=== PATIENT | male | born 1970 | race Caucasian/White ===

== ENCOUNTER → 2020-05-07 09:36 | Outpatient (CLI) | payer OTHER, SELFPAY ==
--- NOTE | 2020-05-07 09:39 | DI.RAD.S_ITS ---
PROCEDURE: XR SHOULDER LT MIN 2V INDICATIONS: left shoulder pain no trauma TECHNIQUE: 3 views of the shoulder were acquired. COMPARISON: None. FINDINGS: Bones: No fractures or dislocations. Mild osteoarthritic changes in acromioclavicular joint are seen. No suspicious bony lesions. Visualized ribs appear intact. Soft tissues: No suspicious soft tissue calcifications. IMPRESSION: No shoulder fracture or dislocation. Mild acromioclavicular joint osteoarthritis. Dictated by: Óscar Sawyer M.D. on 05/07/2020 at 10:06 Approved by: Óscar Sawyer M.D. on 05/07/2020 at 10:17
== END ==
PROVIDERS: PCP Specialist; Referring Provider Physical Medicine & Rehabilitation; Visit Provider Physical Medicine & Rehabilitation
DX: M75.42 Impingement syndrome of left shoulder (principal); M25.512 Pain in left shoulder; M19.012 Primary osteoarthritis, left shoulder
CPT/HCPCS: 73030

== ENCOUNTER → 2020-06-27 14:12 | Outpatient (CLI) | payer OTHER, SELFPAY ==
--- NOTE | 2020-06-27 14:14 | DI.RAD.S_ITS ---
PROCEDURE: XR CERVICAL SPINE 4V OR 5V INDICATIONS: cervical radiculopathy TECHNIQUE: 5 views of the cervical spine acquired. COMPARISON: None. FINDINGS: Bones: No fractures or dislocations to the C7-T1 level. Straightening of normal cervical lordosis is seen. Decreased intervertebral disc space and degenerative endplate changes are noted at C5-6 and C6-7 levels. Oblique images demonstrate bilateral bony foraminal stenosis at C5-6 level. Soft tissues: No prevertebral soft tissue swelling. IMPRESSION: Degenerative disc disease at C5-6 and C6-7 levels with suggestion of bilateral bony foraminal stenosis at C5-6 level. No fracture or dislocation. Dictated by: Óscar Sawyer M.D. on 06/27/2020 at 13:36 Approved by: Óscar Sawyer M.D. on 06/27/2020 at 13:37
== END ==
PROVIDERS: PCP Specialist; Referring Provider Physical Medicine & Rehabilitation; Visit Provider Physical Medicine & Rehabilitation
DX: M47.22 Other spondylosis with radiculopathy, cervical region (principal)
CPT/HCPCS: 72050

== ENCOUNTER → 2020-07-04 12:06 | Outpatient (CLI) | payer OTHER, SELFPAY ==
--- NOTE | 2020-07-04 12:07 | DI.MRI.S_ITS ---
PROCEDURE: MR SHOULDER LT WO CON INDICATIONS: Left suprascapular mass TECHNIQUE: Noncontrast oblique coronal T2 fast spin echo with fat saturation, oblique sagittal T1 spin echo and T2 fast spin echo with fat saturation, axial T1 spin echo and T2 fast spin echo with fat saturation through the shoulder. COMPARISON: [facility], CR, XR SHOULDER LT MIN 2V, 05/07/2020, 9:38. FINDINGS: Image quality: There is mild inhomogeneous fat saturation. Rotator cuff: The supraspinatus, infraspinatus, subscapularis, and teres minor appear intact. Sagittal images demonstrate no fatty muscle atrophy. Bones and bursae: No bone marrow contusions or fractures. There is moderate acromioclavicular joint degeneration with capsular hypertrophy, small joint effusion, and periarticular bone marrow edema in the distal clavicle and acromion. The acromion demonstrates conventional anatomy, without an os acromiale. Trace subacromial-subdeltoid bursal fluid is present. Capsule and soft tissues: There is intermediate signal within the posterosuperior labrum. In the absence of intra-articular contrast, the glenohumeral ligaments appear intact. The long head of the biceps tendon demonstrates normal location and morphology. The rotator interval appears normal, without fibrosis. The coracohumeral ligament is normal in thickness. No discrete soft tissue mass identified within the visualized musculature or chest wall. IMPRESSION: 1. No discrete soft tissue mass identified within the visualized musculature chest wall. Further history was obtained following the study. Patient's reported palpable abnormality was localized inferomedial to the scanned area of the shoulder and not included on the current study. If clinical concern persists, further evaluation may be obtained with a dedicated chest wall study with intravenous contrast. 2. Moderate acromioclavicular joint degeneration with periarticular bone marrow edema. 3. Degenerative signal within the posterosuperior labrum. Dictated by: Rubio Ramos M.D. on 07/04/2020 at 14:25 Approved by: Rubio Ramos M.D. on 07/04/2020 at 14:35
--- NOTE | 2020-07-04 12:07 | DI.MRI.S_ITS ---
PROCEDURE: MR CERVICAL SPINE WO CON INDICATIONS: Left upper extremity paresthesias TECHNIQUE: Noncontrast sagittal T1 spin echo and T2 fast spin echo, sagittal STIR, foraminal oblique sagittal T2 fast spin echo, and axial gradient echo or T2 fast spin echo through the cervical spine. COMPARISON: [facility], CR, XR CERVICAL SPINE 4V OR 5V, 06/27/2020, 14:21. FINDINGS: Image quality: Excellent. Alignment and Curvature: There is normal bony alignment. Bone Marrow: Reactive endplate changes noted adjacent to the C5-C6 and C6-C7 discs. Spinal Cord: Visualized spinal cord has normal size and signal. No cerebellar tonsillar herniation. Paraspinous Soft Tissues: No paravertebral masses. Prevertebral soft tissues are normal in thickness. C2-C3: Loss of disc signal. No central stenosis. No neural foraminal narrowing. No neural compression. C3-C4: Loss of disc signal. Minimal, diffuse disc bulge. No central stenosis. No neural foraminal narrowing. No neural compression. C4-C5: Loss of disc signal. No central stenosis. No neural foraminal narrowing. No neural compression. C5-C6: Loss of disc signal and height. Anterior endplate osteophytosis. Moderate, diffuse disc bulge. Severe narrowing of the central canal with slight compression of the cervical spinal cord. Moderate bilateral uncovertebral joint hypertrophy. Severe bilateral neural foraminal narrowing with compression of the exiting C6 nerve roots. C6-C7: Loss of disc signal and height. Moderate, diffuse disc bulge. Severe narrowing of the central canal with compression of the nerve roots of the cauda equina. Moderate bilateral uncovertebral joint hypertrophy. Severe bilateral neural foraminal narrowing with compression of the exiting C7 nerve roots. C7-T1: Loss of disc signal. Minimal, diffuse disc bulge. No central stenosis. No neural foraminal narrowing. No neural compression. IMPRESSION: 1. Multilevel degenerative disc disease. 2. Multilevel uncovertebral hypertrophy. 3. Severe C5-C6 and C6-C7 central canal narrowing with compression of cervical spinal cord. 4. Severe bilateral C5-C6 and C6-C7 neural foraminal narrowing with compression of the exiting bilateral C6 and C7 nerve roots. Dictated by: Mariela Schrader MD, PhD on 07/04/2020 at 13:38 Approved by: Mariela Schrader MD, PhD on 07/04/2020 at 13:56
== END ==
PROVIDERS: PCP Specialist; Referring Provider Physical Medicine & Rehabilitation; Visit Provider Physical Medicine & Rehabilitation
DX: M50.122 Cervical disc disorder at C5-C6 level with radiculopathy (principal); M48.02 Spinal stenosis, cervical region; R22.32 Localized swelling, mass and lump, left upper limb; M19.012 Primary osteoarthritis, left shoulder; R20.2 Paresthesia of skin
CPT/HCPCS: 72141; 73221

== ENCOUNTER 2020-08-14 09:41 | Outpatient (CLI) | payer OTHER, SELFPAY ==
[2020-08-14] VITALS (9 sets, daily range): BP systolic 137–160; BP diastolic 72–94; PULSE 15–83; RESP 13–18; TEMP 37.2; O2SAT 92–99
--- NOTE | 2020-08-14 09:44 | DI.RAD.S_ITS ---
PROCEDURE: PAIN C/T INTERLAMINAR INJECT INDICATIONS: SPINAL STENOSIS COMPARISON: [facility], CR, XR CERVICAL SPINE 4V OR 5V, 06/27/2020, 14:21. FINDINGS: Fluoroscopic spot filming was performed to verify placement of a spinal needle at the C6-C7 level, as labeled on the films. Appropriate location of the needle tip was confirmed by injection of iodinated contrast. IMPRESSION: No significant intraprocedural abnormality. Dictated by: Juan Jose Scott M.D. on 08/14/2020 at 9:52 Approved by: Juan Jose Scott M.D. on 08/14/2020 at 9:52
[2020-08-14] MEDS: fentaNYL 100 MCG/2 ML INJ 50 MCG IV (10:08)
[2020-08-14] MEDS: BUPIVACAINE 0.25% (PF) VIAL 2 ML INJ (10:12)
[2020-08-14] MEDS: MIDAZOLAM 5 MG/5 ML VIAL IV (10:12)
[2020-08-14] MEDS: IOPAMIDOL 15 ML VIAL 3 ML INJ (10:13)
[2020-08-14] MEDS: DEXAMETHASONE 10 MG/ML VIAL 30 MG INJ (10:13)
--- NOTE | 2020-08-14 10:22 | P.PCN_ITS ---
Date/Time/Diagnoses Date of procedure: 08/14/20 Time of procedure: 10:22 Pre-procedure diagnosis: 1. CERVICAL STENOSIS, 2. CERVICAL HNP WITH UPPER EXTREMITY RADICULAR FEATURES Post-procedure diagnosis: same Procedure Notes Procedure: 1. FLUORSCOPICALLY GUIDED CONTRAST CONTROLLED INTERLAMINAR EPIDURAL STEROID INJECTION - C6/7 TL SHAMEKA Indications: Vladimir is referred by Dr. Ernst for treatment of Cervical HNP with Upper Extremity Paresthesias. Physician: Javy Aguilar Total Fluoroscopy time (seconds): 24 Total sedation minutes: 12 Complications: none Procedure in detail & Post-procedure care: FINDINGS Cervical Stenosis due to disc deterioration and nerve root irritation and nerve root irritation DESCRIPTION OF PROCEDURE Fluoroscopically guided, contrast-controlled C6/7 translaminar epidural steroid injection with conscious sedation. Following review of allergy and review of potential side effects and complications, including, but not necessarily limited to, infection, allergic reaction, local tissue breakdown, temporary as well as permanent nerve injury, stroke, paralysis, and possible , the patient indicated that patient understood and agreed to proceed. An informed consent document was signed by the patient, witnessed by a nurse, and placed in the patient's chart. Additionally, other treatment options including modalities, medications, and physical therapy were reviewed with the patient. After review of previous anaesthesic history and IV conscious sedation the patient was deemed safe to proceed with today?s procedure with IV conscious sedation as ASA class II designation. Safety time-out was performed to confirm patient ID, procedure to be performed and site of procedure. IV sedation was accomplished with a combination of 4mg of Versed and 50mcg of Fentanyl administered by the RN after DO order, titrated to patient comfort during the course of the procedure while the patient remained responsive to all verbal commands. In the prone position, following sterile prep and drape of the cervical region, the C6/7 translaminar space was identified fluoroscopically. The skin was anesthetized via a 25-gauge 1.5-inch needle with 1% lidocaine solution. At this point, a 25-gauge, 2.5-inch short bevel spinal needle was atraumatically introduced and advanced under fluoroscopic guidance into epidural space at the C6/7 translaminar space. Depth was confirmed on lateral view. Radiological data, including multiple fluoroscopic views of the cervical spine, reveal a spinal needle at the C6/7 translaminar space. Lateral views then show placement of the needle in the epidural space. Subsequent views show contrast material flowing superiorly and inferiorly in the epidural space. DSA fluoroscopy with live contrast injection, once again, confirmed no vascular or intrathecal uptake. At this point, using loss of resistance technique with saline and air, the epidural space was entered. Following negative aspiration, injection of appr oximately 1.5 cc of Isovue-200 with live fluoroscopy in the AP view confirmed epidural flow in the epidural space without vascular or intrathecal uptake observed. Subsequently, a test dose of 1 cc of 1% lidocaine solution was injected and patient was observed for two minutes without signs or symptoms of complications, including abdominal pain, shortness of breath, bilateral upper or lower extremity weakness, nausea and vomiting, prior to steroid injection. At this point, 3cc or 30mg of dexamethasone was then injected without incident. The patient tolerated the procedure well without signs or symptoms of complications prior to being transferred to the recovery area for further monitoring, The patient was then transferred to the recovery area where they were observed for an appropriate period of time after the injection. The patient reported a VAS score of 6 prior to the procedure and a post-procedure VAS of 0. POST OP INSTRUCTIONS The patient was provided a Pain Log to continue to record their response to the target-specific procedure prior to follow-up visit with the referring provider. Additionally, specific post-injection care instructions and a contact number to our office were provided if concerns arise regarding possible complications associated with the procedure are suspected.
== END 2020-08-14 10:47 | disposition home or self-care (01) ==
LOC: RAD 09:43
PROVIDERS: PCP Specialist; Referring Provider Physical Medicine & Rehabilitation; Visit Provider Physical Medicine & Rehabilitation
DX: M48.02 Spinal stenosis, cervical region (principal); M50.123 Cervical disc disorder at C6-C7 level with radiculopathy
CPT/HCPCS: 62321; 99152; J1100; J2250; J3010

== ENCOUNTER 2020-11-06 09:05 | Outpatient (CLI) | payer OTHER, SELFPAY ==
[2020-11-06] VITALS (10 sets, daily range): BP systolic 122–155; BP diastolic 77–83; PULSE 64–77; RESP 12–26; TEMP 37.2; O2SAT 95–99
--- NOTE | 2020-11-06 09:07 | DI.RAD.S_ITS ---
PROCEDURE: PAIN C/T INTERLAMINAR INJECT INDICATIONS: SPINAL STENOSIS COMPARISON: [facility], , PAIN C/T INTERLAMINAR INJECT, 08/14/2020, 10:13. FINDINGS: Fluoroscopic spot filming was performed to verify placement of a spinal needle at the C6-C7 level, as labeled on the films. Appropriate location of the needle tip was confirmed by injection of iodinated contrast. IMPRESSION: No significant intraprocedural abnormality. Dictated by: Juan Jose Scott M.D. on 11/06/2020 at 9:31 Approved by: Juan Jose Scott M.D. on 11/06/2020 at 9:31
[2020-11-06] MEDS: fentaNYL 100 MCG/2 ML INJ 50 MCG IV (10:04)
[2020-11-06] MEDS: MIDAZOLAM 5 MG/5 ML VIAL IV (10:07)
[2020-11-06] MEDS: DEXAMETHASONE 10 MG/ML VIAL 30 MG INJ (10:07)
[2020-11-06] MEDS: IOPAMIDOL 15 ML VIAL 3 ML INJ (10:07)
[2020-11-06] MEDS: BUPIVACAINE 0.25% (PF) VIAL 2 ML INJ (10:07)
--- NOTE | 2020-11-06 10:18 | P.PCN_ITS ---
Date/Time/Diagnoses Date of procedure: 11/06/20 Time of procedure: 10:18 Pre-procedure diagnosis: 1. CERVICAL STENOSIS, 2. CERVICAL HNP WITH UPPER EXTREMITY RADICULAR FEATURES Post-procedure diagnosis: same Procedure Notes Procedure: 1. FLUORSCOPICALLY GUIDED CONTRAST CONTROLLED INTERLAMINAR EPIDURAL STEROID INJECTION - C6/7 TL SHAMEKA Indications: Vladimir is referred by Dr. Ernst for treatment of Cervical HNP with Upper Extremity Paresthesias. Physician: Javy Aguilar Total Fluoroscopy time (seconds): 19 Total sedation minutes: 11 Complications: none Procedure in detail & Post-procedure care: FINDINGS Cervical Stenosis due to disc deterioration and nerve root irritation and nerve root irritation DESCRIPTION OF PROCEDURE Fluoroscopically guided, contrast-controlled C6/7 translaminar epidural steroid injection with conscious sedation. Following review of allergy and review of potential side effects and complications, including, but not necessarily limited to, infection, allergic reaction, local tissue breakdown, temporary as well as permanent nerve injury, stroke, paralysis, and possible , the patient indicated that patient understood and agreed to proceed. An informed consent document was signed by the patient, witnessed by a nurse, and placed in the patient's chart. Additionally, other treatment options including modalities, medications, and physical therapy were reviewed with the patient. After review of previous anaesthesic history and IV conscious sedation the patient was deemed safe to proceed with today?s procedure with IV conscious sedation as ASA class II designation. Safety time-out was performed to confirm patient ID, procedure to be performed and site of procedure. IV sedation was accomplished with a combination of 4mg of Versed and 50mcg of Fentanyl administered by the RN after DO order, titrated to patient comfort during the course of the procedure while the patient remained responsive to all verbal commands. In the prone position, following sterile prep and drape of the cervical region, the C6/7 translaminar space was identified fluoroscopically. The skin was anesthetized via a 25-gauge 1.5-inch needle with 1% lidocaine solution. At this point, a 25-gauge, 2.5-inch short bevel spinal needle was atraumatically introduced and advanced under fluoroscopic guidance into epidural space at the C6/7 translaminar space. Depth was confirmed on lateral view. Radiological data, including multiple fluoroscopic views of the cervical spine, reveal a spinal needle at the C6/7 translaminar space. Lateral views then show placement of the needle in the epidural space. Subsequent views show contrast material flowing superiorly and inferiorly in the epidural space. DSA fluoroscopy with live contrast injection, once again, confirmed no vascular or intrathecal uptake. At this point, using loss of resistance technique with saline and air, the epidural space was entered. Following negative aspiration, injection of appr oximately 1.5 cc of Isovue-200 with live fluoroscopy in the AP view confirmed epidural flow in the epidural space without vascular or intrathecal uptake observed. Subsequently, a test dose of 1 cc of 1% lidocaine solution was injected and patient was observed for two minutes without signs or symptoms of complications, including abdominal pain, shortness of breath, bilateral upper or lower extremity weakness, nausea and vomiting, prior to steroid injection. At this point, 3cc or 30mg of dexamethasone was then injected without incident. The patient tolerated the procedure well without signs or symptoms of complications prior to being transferred to the recovery area for further monitoring, The patient was then transferred to the recovery area where they were observed for an appropriate period of time after the injection. The patient reported a VAS score of 6 prior to the procedure and a post-procedure VAS of 0. POST OP INSTRUCTIONS The patient was provided a Pain Log to continue to record their response to the target-specific procedure prior to follow-up visit with the referring provider. Additionally, specific post-injection care instructions and a contact number to our office were provided if concerns arise regarding possible complications associated with the procedure are suspected.
== END 2020-11-06 10:40 | disposition home or self-care (01) ==
LOC: RAD 09:06
PROVIDERS: PCP Specialist; Referring Provider Physical Medicine & Rehabilitation; Visit Provider Physical Medicine & Rehabilitation
DX: M48.02 Spinal stenosis, cervical region (principal); M50.123 Cervical disc disorder at C6-C7 level with radiculopathy; R20.2 Paresthesia of skin
CPT/HCPCS: 62321; 99152; J1100; J2250; J3010

== ENCOUNTER 2021-06-04 08:54 | Outpatient (CLI) | payer OTHER, SELFPAY ==
[2021-06-04 09:20] VITALS: BP 134/100; PULSE 166; RESP 14; TEMP 36.6; O2SAT 99
--- NOTE | 2021-06-04 09:43 | PC.NURSE ---
Patient arrived to room for injection, noted to have HR 150-166 ST, denies and chest pain, SOB or heart palpations. States that 2-3 days ago he has tightness/pressure in his chest that took his breath away but went away pretty quickly. Denies any of that feeling today. Patient hooked up to monitor and IV placed, Dr Aguilar notified. He canceled procedure and Spoke with ER. He was transferred to ER via W/C with Kaylen GARNER. Dr Aguilar is notifying his .
== END 2021-06-04 09:35 | disposition home or self-care (01) ==
LOC: RAD 08:55
PROVIDERS: PCP Specialist; Referring Provider Physical Medicine & Rehabilitation; Visit Provider Physical Medicine & Rehabilitation
DX: M54.12 Radiculopathy, cervical region (principal)

== ENCOUNTER 2021-06-04 09:37 | Observation (INO) | payer OTHER, SELFPAY ==
[2021-06-04] VITALS (28 sets, daily range): BP systolic 108–147; BP diastolic 69–109; PULSE 72–151; RESP 12–21; TEMP 36.7–37; O2SAT 96–100; BMI 30.4
--- NOTE | 2021-06-04 | DI.ECHO.S_ITS ---
[facility] +---------+ [facility] +---------+ : : [id number] : : : : [id number] : : : : Phone: [phone]+ Echocardiogram Report + + :Name: GASTON QUIROGA Study Date: 06/05/2021 Height: 76 in : :[facility] ReadingLocation: Weight: 250 lb : : Gender: Male BSA: 2.4 m2 : :: 1970 Age: 50 yrs BP: 126/88 mmHg: :Reason For Study: New onset atrial fibrillation : :Ordering Physician: ESTELITA, : :SHARI Performed By: Mao Moore : :Referring: SHARI CAPONE : + + Interpretation Summary Afib with rapid ventricular response. HR is 105-128 bpm. Normal LV size and wall thickness; EF is 40-45%. Severe LA enlargement; mild-moderate RA enlargement. No significant valvular abnormalities. No prior study available for comparison. Procedure: A two-dimensional transthoracic echocardiogram with color flow and Doppler was performed. The study quality was technically adequate. There is no prior echocardiogram noted for this patient. The patient was in atrial fibrillation with heart rates between 105 - 128 bpm during the exam. Left Ventricle: The left ventricle is normal in size and wall thickness. Left ventricular systolic function is mildly reduced. The ejection fraction is estimated to be 40-45%. Diastolic function could not be accurately assessed due to atrial fibrillation. Right Ventricle: The right ventricle is mild to moderately dilated. Right ventricular systolic function is mildly reduced. Atria: The left atrium is severely dilated. The right atrium is mild to moderately dilated. There is no Doppler evidence for an interatrial shunt. Mitral Valve: The mitral valve leaflets appear mildly thickened, but open well. There is mild to moderate mitral regurgitation. Aortic Valve: The aortic valve is trileaflet. The aortic valve opens well. There is trace aortic regurgitation. Tricuspid Valve: The tricuspid valve is normal. There is mild tricuspid regurgitation. The right ventricular systolic pressure is estimated to be at least 30 mmHg based on an estimated right atrial pressure of 8 mm Hg. Pulmonic Valve: The pulmonic valve leaflets are thin and pliable; valve motion is normal. There is trace pulmonic regurgitation. Great Vessels: The aortic root is normal size. The ascending aorta is normal in size. The aortic arch is normal in size. The IVC is dilated (diameter is greater than 2.1 cm) yet it collapses greater than 50% with a sniff. This suggests a right atrial pressure of 8 mm Hg. Pericardium/ Pleura There is no pericardial effusion. There is an anterior echo-free space consistent with a fat pad. There is no pleural effusion. MMode/2D Measurements & Calculations LVIDd: 4.7 cm LVOT diam: 2.4 cm LVIDs: 4.3 cm Ao root diam: 3.4 cm FS: 9.2 % asc Aorta Diam: 3.5 cm IVSd: 1.0 cm Ao Arch Diam (Prox Trans): 2.5 cm LVPWd: 1.2 cm LV nagy. diameter/BSA (cm/m^2): 1.9 LV sys. diameter/BSA (cm/m^2): 1.8 LA A2 area: 30.7 cm2 RA long axis: 7.1 cm LA A4 area: 31.1 cm2 RA area: 24.3 cm2 LA length (vol): 6.8 cm RA vol: 70.6 ml LA vol: 119.2 ml RA : 29.0 ml/m2 LA vol index: 48.9 ml/m2 IVC diam: 2.4 cm TAPSE: 1.4 cm Doppler Measurements & Calculations Ao V2 max: 93.4 cm/sec LVOT Max José: 66.0 cm/sec Ao V2 mean: 70.6 cm/sec LV V1 max P.7 mmHg Ao max P.6 mmHg LV V1 VTI: 10.7 cm Ao mean P.1 mmHg VINCENT(I,D): 3.1 cm2 Ao V2 VTI: 15.8 cm VINCENT(V,D): 3.2 cm2 sev ratio: 0.68 VINCENT indexed to BSA (cm^2/m^2): 1.3 MV E max josé: 96.6 cm/sec TR max josé: 234.4 cm/sec Med Peak E' José: 3.2 cm/sec TR max P.1 mmHg E/E' med: 30.4 PA V2 max: 57.8 cm/sec Lat Peak E' José: 12.5 cm/sec PA V2 mean: 46.1 cm/sec E/E' lat: 7.7 PA mean P.89 mmHg E/e' average: 19.1 PA pr([employer]): 27.6 mmHg MR VTI: 143.3 cm SV([facility]): 48.4 ml Electronically signed by: Meka Rodrigez M.D. on Reading Physician:06/05/2021 01:12 PM
--- NOTE | 2021-06-04 09:46 | DI.RAD.S_ITS ---
PROCEDURE: XR CHEST 1V INDICATIONS: fast heart rate. TECHNIQUE: One view of the chest was acquired. COMPARISON: None. FINDINGS: Surgical changes and devices: None. Lungs and pleura: Mild generalized interstitial prominence can be seen. No pleural effusions or pneumothorax. Low lung volumes are noted. This causes a crowded appearance to the lung markings and limits evaluation. Mediastinum: Mediastinal contours appear normal. Heart size is normal. Bones and chest wall: No suspicious bony lesions. Age-appropriate bony degenerative changes are seen. Overlying soft tissues appear unremarkable. IMPRESSION: Mild generalized interstitial prominence can be seen with low lung volumes. Differential diagnosis includes mild pulmonary edema and interstitial infiltrates (including COVID pneumonia). Dictated by: Juan Jose Scott M.D. on 06/04/2021 at 9:14 Approved by: Juan Jose Scott M.D. on 06/04/2021 at 9:14
--- NOTE | 2021-06-04 09:46 | ED.ARRPALP ---
HPI - Arrhythmia/Palpitations General Chief Complaint: Arrhythmia/Palpitations Stated Complaint: high heart rate Time Seen by Provider: 06/04/21 09:46 Source: patient and old records reviewed Mode of arrival: Ambulatory Limitations: no limitations History of Present Illness HPI narrative: This is a 50-year-old male who is brought over from Dr. Aguilar is office for elevated heart rate. Patient states he did not feel his heart rate was elevated. He does not have any known history of cardiac arrhythmias. Patient states 3 or 4 days ago he did feel a little bit of lightheadedness and a couple of pressure that time. He does not have any sensation of fast or elevated heart rate. Has felt lightheaded on and off in the past. He denies any current chest pain, shortness of breath, no chest pain or shortness of breath with exertion. No fevers or chills. No nausea or vomiting. He has not had any syncope. Patient denies swelling in his extremities. Over the holidays he and his were ill and he had a cough. He denies any other past medical history. No prior surgeries. No allergies to medications. He smokes 15-20 cigarettes daily, 1-2 alcoholic beers daily, no illicit. Primary care is Dr. Ernst. No family history of cardiac, embolic for pulmonary issues. He has not had any long distance travel. He has not any daily medications. Related Data Allergies Allergy/AdvReac Type Severity Reaction Status Date / Time No Known Drug Allergies Allergy Verified 06/04/21 09:47 Review of Systems Review of Systems ROS Unobtainable: All systems reviewed & are unremarkable except as noted in HPI and below Patient History Medical History Cervical radiculopathy DJD of left AC (acromioclavicular) joint HNP (herniated nucleus pulposus), cervical Rotator cuff impingement syndrome of left shoulder Shoulder mass Family History Mother Diabetes mellitus Father Cancer Social History household members: spouse and children Smoking Status: Current every day smoker alcohol intake: current Smoking Status: Current every day smoker Exam Narrative Exam Narrative: GENERAL: Alert and oriented x three, male in mild distress. HEENT: Head normocephalic, atraumatic, EOMI, pupils reactive, face symmetric, moist mucous membranes NECK: Supple, full range of motion CARDIOVASCULAR: Irregularly irregular rate and rhythm without murmurs, rubs or gallops. JVD. No swelling bilateral lower extremities. RESPIRATORY: Breath sounds equal bilaterally, no wheezes rales or rhonchi. ABDOMEN: Soft, nontender. Normoactive bowel sounds all 4 quadrants. No guarding or rebound, rigidity, no mass : No CVA tenderness EXTREMITIES: Normal range of motion. Neurovascularly intact NEUROLOGICAL: Cranial nerves II through XII grossly intact. Moving all extremities. Normal gait. SKIN: Warm, dry, no petechiae, no rashes or lesions. Initial Vital Signs Initial Vital Signs: Vital Signs Temperature 98.1 F 06/04/21 09:43 Pulse Rate 137 H 06/04/21 09:43 Respiratory Rate 14 06/04/21 09:43 Blood Pressure 138/109 H 06/04/21 09:43 Pulse Oximetry 99 06/04/21 09:43 Course Orders Ordered: ED Orders 06/04/21 09:44 EKG-12 Lead Stat 06/04/21 09:46 XR chest 1V Stat 06/04/21 09:55 BNP [NT-proBNP (BNP-Adult 18+)] Stat Basic Metabolic Panel Stat COVID19 - ADMIT ([employer] swab/PCR) Stat Complete Blood Count AUTO DIFF Stat Magnesium Stat Thyroid Stimulating Hormone Stat Troponin & CK Cardiac Panel Stat 06/04/21 10:30 Partial Thromboplastin Time Stat Prothrombin Time INR Stat Sodium Chloride (Normal Saline 0.9%) 1,000 mls @ 150 mls/hr IV CONT SERENITY Last Admin: 06/04/21 10:00 Dose: 150 mls/hr Documented by: BRE Diltiazem HCl 125 mg/ Dextrose 125 mls @ 5 mls/hr IV TITRATE SERENITY; Protocol Last Admin: 06/04/21 12:01 Dose: 5 mg/hr, 5 mls/hr Documented by: CHERELLE Discontinued Medications Diltiazem HCl (Diltiazem 5 Mg/Ml Sdv) 20 mg IV NOW ONE Stop: 06/04/21 10:16 Last Admin: 06/04/21 10:36 Dose: 20 mg Documented by: KBROWNE Reevaluation(s) Reevaluation #1: Patient's heart rate continues to be 140s to 150s. He did respond to diltiazem but shortly his heart rate and increased once again. Consultations Consultation #1: Dr. Chua, hospitalist accepts for admission for AFib RVR BNP is elevated, some mild pulmonary edema on chest x-ray but is asymptomatic. The rest of his labs are appropriate. Vital Signs Vital signs: Vital Signs - 8 hr 06/04/21 09:43 06/04/21 10:18 06/04/21 10:30 Temperature 98.1 F Pulse Rate 137 H 151 H 144 H Respiratory Rate 14 19 16 Blood Pressure 138/109 H 136/98 H Pulse Oximetry 99 99 99 06/04/21 10:36 06/04/21 10:47 06/04/21 11:00 Temperature Pulse Rate 144 H 128 H 102 H Respiratory Rate 15 13 Blood Pressure 136/98 H 134/80 130/86 Pulse Oximetry 98 98 06/04/21 11:30 06/04/21 11:54 06/04/21 12:00 Temperature Pulse Rate 116 H 131 H 140 H Respiratory Rate 15 13 18 Blood Pressure 118/83 136/81 Pulse Oximetry 100 99 98 06/04/21 12:01 Temperature Pulse Rate 142 H Respiratory Rate 20 Blood Pressure 147/99 H Pulse Oximetry 98 MDM - Arrhythmia/Palpitations Lab Data Result diagrams: 06/04/21 09:55 06/04/21 09:55 Labs: Lab Results 06/04/21 06/04/21 06/04/21 Range/Units 09:55 09:55 09:55 WBC 6.9 (4.5-11.0) X10^3/uL RBC 5.05 (4.5-5.9) X10^6/uL Hgb 16.1 (13.5-17.5) g/dL Hct 46.9 (41-53) % MCV 92.8 (80-100) fL MCH 31.8 (26-34) PG MCHC 34.3 (30-36) % RDW 13.1 (11.6-14.8) % Plt Count 211 (150-400) X10^3/uL Neut % (Auto) 64.7 (50-75) % Lymph % (Auto) 25.2 (25-40) % [place] % (Auto) 8.2 (3-14) % Eos % (Auto) 1.4 L (2-4) % Baso % (Auto) 0.5 (0-2) % Neut # (Auto) 4400 (8494-4033) /uL Lymph # (Auto) 1700 (6347-9258) /uL [place] # (Auto) 600 (0-900) /uL Eos # (Auto) 100 (0-450) /uL Baso # (Auto) 0 (0-100) /uL PT (10.1-12.7) SECONDS INR (0.9-1.3) APTT (26.4-36.2) SECONDS Sodium 139 (137-145) mmol/L Potassium 4.3 (3.4-5.1) mmol/L Chloride 109 H (98-107) mmol/L Carbon Dioxide 21 L (22-32) mmol/L BUN 17 (9-20) mg/dL Creatinine 0.72 (0.66-1.25) mg/dL Estimated GFR > 60.0 (>60) mL/min BUN/Creatinine Ratio 23.6 H (6-22) Glucose 124 H (70-100) mg/dL Calcium 9.3 (8.4-10.2) mg/dL Magnesium 1.9 (1.6-2.3) mg/dL Total Creatine Kinase 165 (55-170) U/L CK-MB (CK-2) 2.28 (<2.37) ng/mL CK-MB (CK-2) Rel Index 1.4 L (1.5-5.0) % Troponin I < 0.012 (0.01-0.034) ng/mL NT-Pro-B Natriuret Pep 993 H (<125) pg/mL TSH 1.91 (0.47-4.68) uIU/mL SARS-CoV-2 (PCR) (Negative) 06/04/21 06/04/21 Range/Units 09:55 10:30 WBC (4.5-11.0) X10^3/uL RBC (4.5-5.9) X10^6/uL Hgb (13.5-17.5) g/dL Hct (41-53) % MCV (80-100) fL MCH (26-34) PG MCHC (30-36) % RDW (11.6-14.8) % Plt Count (150-400) X10^3/uL Neut % (Auto) (50-75) % Lymph % (Auto) (25-40) % [place] % (Auto) (3-14) % Eos % (Auto) (2-4) % Baso % (Auto) (0-2) % Neut # (Auto) (4800-5259) /uL Lymph # (Auto) (9517-5433) /uL [place] # (Auto) (0-900) /uL Eos # (Auto) (0-450) /uL Baso # (Auto) (0-100) /uL PT 12.1 (10.1-12.7) SECONDS INR 1.1 (0.9-1.3) APTT 32 (26.4-36.2) SECONDS Sodium (137-145) mmol/L Potassium (3.4-5.1) mmol/L Chloride (98-107) mmol/L Carbon Dioxide (22-32) mmol/L BUN (9-20) mg/dL Creatinine (0.66-1.25) mg/dL Estimated GFR (>60) mL/min BUN/Creatinine Ratio (6-22) Glucose (70-100) mg/dL Calcium (8.4-10.2) mg/dL Magnesium (1.6-2.3) mg/dL Total Creatine Kinase (55-170) U/L CK-MB (CK-2) (<2.37) ng/mL CK-MB (CK-2) Rel Index (1.5-5.0) % Troponin I (0.01-0.034) ng/mL NT-Pro-B Natriuret Pep (<125) pg/mL TSH (0.47-4.68) uIU/mL SARS-CoV-2 (PCR) Negative (Negative) Imaging Data Chest x-ray: Radiologist's Impresson: Launch?[address] [address] XRay Report Signed Patient: Vladimir Rodgers MR#: [id number] : 1970 Acct:[id number] Age/Sex: 50 / M Date of Service: 06/04/21 Loc: ED Accession Number: [id number] ?? Procedure: XR chest 1V Ordering Provider: Daysi Zapata D.O. PROCEDURE:? XR CHEST 1V ? INDICATIONS:? fast heart rate. ? TECHNIQUE:? One view of the chest was acquired.? ? COMPARISON:? None. ? FINDINGS:? ? Surgical changes and devices:? None.? ? Lungs and pleura:? Mild generalized interstitial prominence can be seen.? No pleural effusions or pneumothorax.? Low lung volumes are noted. This causes a crowded appearance to the lung markings and limits evaluation.? ? Mediastinum:? Mediastinal contours appear normal.? Heart size is normal.? ? Bones and chest wall:? No suspicious bony lesions.? Age-appropriate bony degenerative changes are seen. ? Overlying soft tissues appear unremarkable.? IMPRESSION:? Mild generalized interstitial prominence can be seen with low lung volumes.? Differential diagnosis includes mild pulmonary edema and interstitial infiltrates (including COVID pneumonia). ? ? Dictated by: Juan Jose Scott M.D. on 06/04/2021 at 9:14 ? ? Approved by: Juan Jose Scott M.D. on 06/04/2021 at 9:14 ECG Data Attestation: I personally reviewed and interpreted this ECG as follows: Interpretation: AFib with RVR. Rate of 154 QRS is 78 [address]TC [address] No acute ST elevation depression noted. Patient does not have priors for comparison. MDM Narrative Medical decision making narrative: This is a 50-year-old male comes emergency department for AFib RVR. Patient with to an outpatient procedure and was found to have a heart rate in the 150s. Patient is not have AFib with RVR electrolytes, renal function, her enzyme were all negative BNP is elevated with some mild pulmonary edema on chest x-ray. Patient is otherwise asymptomatic. He does not have prior known history. He was given diltiazem with some minimal improvement initially with IV bolus and started on drip. Patient is not anticoagulated. He has been in AFib for an unknown period of time possibly 3 days possibly longer. I spoke With the hospitalist who kindly accepts. Discharge Plan Departure Patient Disposition: Admitted As Inpatient Clinical Impression: Atrial fibrillation with rapid ventricular response Admit Date/Time: 06/04/21 12:11 Admit Provider: Catia Chua
[2021-06-04] MEDS: SODIUM CHLORIDE 0.9% 1,000 ML 150 ML IV (10:00)
[2021-06-04 10:09] LABS: Add Manual Diff / Slide Review NO; Basophils Absolute Auto 0 /uL (0-100); Basophils Percent Auto 0.5 % (0-2); Eosinophils Absolute Auto 100 /uL (0-450); Eosinophils Percent Auto 1.4 % (2-4); Hematocrit 46.9 % (41-53); Hemoglobin 16.1 g/dL (13.5-17.5); Lymphocytes Absolute Auto 1700 /uL (1100-4500); Lymphocytes Percent Auto 25.2 % (25-40); Mean Corpuscular HGB Conc 34.3 % (30-36); Mean Corpuscular Hemoglobin 31.8 PG (26-34); Mean Corpuscular Volume 92.8 fL (80-100); Monocytes Absolute Auto 600 /uL (0-900); Monocytes Percent Auto 8.2 % (3-14); Neutrophils Absolute Auto 4400 /uL (1500-7000); Neutrophils Percent Auto 64.7 % (50-75); Platelet Count 211 X10^3/uL (150-400); Red Blood Cell Count 5.05 X10^6/uL (4.5-5.9); Red Cell Distribution Width 13.1 % (11.6-14.8); White Blood Cell Count 6.9 X10^3/uL (4.5-11.0)
[2021-06-04 10:23] LABS: BUN Creatinine Ratio 23.6 (6-22); Blood Urea Nitrogen 17 mg/dL (9-20); Calcium 9.3 mg/dL (8.4-10.2); Carbon Dioxide 21 mmol/L (22-32); Chloride 109 mmol/L (98-107); Creatine Kinase 165 U/L (55-170); Estimated Glomerular Filt Rate > 60.0 mL/min (>60); Glucose 124 mg/dL (70-100); Magnesium 1.9 mg/dL (1.6-2.3); Potassium 4.3 mmol/L (3.4-5.1); Sodium 139 mmol/L (137-145)
[2021-06-04 10:34] LABS: NT-proBNP (BNP-Adult 18+) 993 pg/mL (<125); Troponin I < 0.012 ng/mL (0.01-0.034)
[2021-06-04] MEDS: dilTIAZem 5 MG/ML SDV 20 MG IV (10:36)
[2021-06-04 10:46] LABS: COVID19 - ADMIT (NP swab/PCR) Negative (Negative)
[2021-06-04 10:50] LABS: CKMB % Relative Index 1.4 % (1.5-5.0); Creatine Kinase MB 2.28 ng/mL (<2.37); HEMOLYSIS 62 (0-50)
[2021-06-04 10:50] LABS: INR 1.1 (0.9-1.3); Prothrombin Time 12.1 SECONDS (10.1-12.7)
[2021-06-04 10:52] LABS: PTT Partial Thromboplastin Tim 32 SECONDS (26.4-36.2)
[2021-06-04 11:22] LABS: Thyroid Stimulating Hormone 1.91 uIU/mL (0.47-4.68)
[2021-06-04] MEDS: dilTIAZem 125 MG in DEXTROSE 5 % IN WATER 100 ML IV (12:01)
--- NOTE | 2021-06-04 13:55 | PC.NURSE ---
Addendum entered by Yomi Rooney R.N. 06/04/21 19:33: 1600- titrated dilt gtt to 10 mg/hr. Pt HR 80s at rest. Increases to 120s-140s with activity. Addendum entered by Yomi Rooney R.N. 06/04/21 14:06: *Pt is [place] and speaks [place] as a second language. Educated pt and to availability of [employer] phone system for translation services. Pt states he has been in the [place] for many years and can speak and understand [place] well. Pt and both decline use at this time. Original Note: 1315- Pt admitted to room 230 from ED. Pt able to stand and walk to and then to bed from [facility] independently. accompanies pt to room. Oriented pt and to room/routine, use of call light. Gave instruction to wait for assistance before getting OOB due to multiple monitors and IV line. Pt and verbalize understanding. Pt is on dilt gtt and has been titrated to 15 mg/hr with HR 110s-150s. Pt denies any symptoms aside from a mild left lateral-posterior head pressure. BP WNL. Afebrile. Pt is Bosn[place] and speaks [place] Dr. Chua notified of pt's arrival at 1340. Dr. Escalante notified of pt's arrival at 1400 and will review chart before seeing pt.
--- NOTE | 2021-06-04 14:22 | P.HP_ITS ---
History of Present Illness History of Present Illness Date Patient Seen: 06/04/21 Time Patient Seen: 14:22 Chief complaint: high heart rate Narrative: The patient is a 50-year-old male previously healthy who was seen Dr. Aguilar for a steroid injection into his left cervical area. He was noted to be in rapid atrial fibrillation and brought into the emergency department for evaluation. The patient denies any history of palpitations, he has no history of shortness of breath, no history of chest pain, and no history of coronary disease. He denies orthopnea, PND, edema, or history of heart failure. Patient does report an episode of awareness of breathing a few nights ago but no other symptoms. Patient was evaulated in the Emergency Department and found to be in rapid atrial fibrillation with a heart rate of 140's-150's. He was started on a diltiazem drip and remained in rapid atrial fibrillation. Patient is admitted to the hospital for definitive treatment. Patient History Medical History Cervical radiculopathy DJD of left AC (acromioclavicular) joint HNP (herniated nucleus pulposus), cervical Rotator cuff impingement syndrome of left shoulder Shoulder mass Family & Social History Family History Mother Diabetes mellitus Father Cancer Social History: household members spouse,children Prior Living Arrangements House Safety & Behavioral: Feels Safe in Current Yes Environment Been Physically Hurt or No Threatened By a Person Suicidal Ideation Description None Suicide Plan Description No Plan Tobacco & Substance use: Tobacco type cigarettes Smoking Status Current every day smoker alcohol intake current alcohol intake frequency holiday/special occasion Substance Use Type does not use Meds Home Medications and Allergies Home Medications Medication Instructions Recorded Confirmed Type No Known Home Medications 06/04/21 06/04/21 History Allergies Allergy/AdvReac Type Severity Reaction Status Date / Time No Known Drug Allergies Allergy Verified 06/04/21 09:47 Review of Systems Review of Systems Narrative: 10 point review of system is negative except as above. Patient also has pain in the left neck/shoulder area Exam Vital Signs (past 8 hours): - 06/04/21 09:43 06/04/21 10:18 06/04/21 10:30 Temperature 98.1 F Pulse Rate 137 H 151 H 144 H Respiratory Rate 14 19 16 Blood Pressure 138/109 H 136/98 H Pulse Oximetry 99 99 99 06/04/21 10:36 06/04/21 10:47 06/04/21 11:00 Temperature Pulse Rate 144 H 128 H 102 H Respiratory Rate 15 13 Blood Pressure 136/98 H 134/80 130/86 Pulse Oximetry 98 98 06/04/21 11:30 06/04/21 11:54 06/04/21 12:00 Temperature Pulse Rate 116 H 131 H 140 H Respiratory Rate 15 13 18 Blood Pressure 118/83 136/81 Pulse Oximetry 100 99 98 06/04/21 12:01 06/04/21 12:15 06/04/21 12:30 Temperature Pulse Rate 142 H 148 H 134 H Respiratory Rate 20 19 16 Blood Pressure 147/99 H 136/103 H 122/89 Pulse Oximetry 98 98 98 06/04/21 13:00 06/04/21 13:23 Temperature 98.6 F Pulse Rate 124 H 146 H Respiratory Rate 16 12 Blood Pressure 134/99 H 141/97 H Pulse Oximetry 99 100 Oxygen Delivery Method Room Air Oxygen Flow Rate 0 Narrative Exam Narrative: Pleasant male lying in bed in no obvious distress [facility] Other: HEENT: Normocephalic atraumatic, extraocular muscles are intact, oropharynx is clear, neck is supple without adenopathy thyromegaly or bruits Resp Other: Lungs: Clear to auscultation Cardio Other: Cardiac exam: Tachycardic irregularly irregular normal S1-S2 no murmurs rubs or gallops GI Other: Abdomen: Soft nontender nondistended no appreciable hepatosplenomegaly Extrem Other: Lower extremities: No edema Psych Other: Neuro exam: Patient is awake alert appropriate, normal speech, normal mood, normal affect, normal thought process content and judgment Objective ECG Impression: Atrial fibrillation with a rapid ventricular response rate Imaging Chest x-ray: Radiologist's impression: ?Mild generalized interstitial prominence can be seen with low lung volumes.? Differential diagnosis includes mild pulmonary edema and interstitial infiltrates (including COVID pneumonia). Labs Result Diagrams: 06/04/21 09:55 06/04/21 09:55 Labs: Laboratory Results - last 24 hr 06/04/21 06/04/21 06/04/21 09:55 09:55 09:55 WBC 6.9 RBC 5.05 Hgb 16.1 Hct 46.9 MCV 92.8 MCH 31.8 MCHC 34.3 RDW 13.1 Plt Count 211 Neut % (Auto) 64.7 Lymph % (Auto) 25.2 [place] % (Auto) 8.2 Eos % (Auto) 1.4 L Baso % (Auto) 0.5 Neut # (Auto) 4400 Lymph # (Auto) 1700 [place] # (Auto) 600 Eos # (Auto) 100 Baso # (Auto) 0 PT INR APTT Sodium 139 Potassium 4.3 Chloride 109 H Carbon Dioxide 21 L BUN 17 Creatinine 0.72 Estimated GFR > 60.0 BUN/Creatinine Ratio 23.6 H Glucose 124 H Calcium 9.3 Magnesium 1.9 Total Creatine Kinase 165 CK-MB (CK-2) 2.28 CK-MB (CK-2) Rel Index 1.4 L Troponin I < 0.012 NT-Pro-B Natriuret Pep 993 H TSH 1.91 SARS-CoV-2 (PCR) 06/04/21 06/04/21 09:55 10:30 WBC RBC Hgb Hct MCV MCH MCHC RDW Plt Count Neut % (Auto) Lymph % (Auto) [place] % (Auto) Eos % (Auto) Baso % (Auto) Neut # (Auto) Lymph # (Auto) [place] # (Auto) Eos # (Auto) Baso # (Auto) PT 12.1 INR 1.1 APTT 32 Sodium Potassium Chloride Carbon Dioxide BUN Creatinine Estimated GFR BUN/Creatinine Ratio Glucose Calcium Magnesium Total Creatine Kinase CK-MB (CK-2) CK-MB (CK-2) Rel Index Troponin I NT-Pro-B Natriuret Pep TSH SARS-CoV-2 (PCR) Negative Assessment & Plan Assessment & Plan narrative: 50-year-old male with a history of cervical spine disease admitted to the hospital with new onset atrial fibrillation with a rapid ventricular response rate * Patient is essentially asymptomatic, however significantly tachycardic * He has no identifiable risk factors * Patient is somewhat hypertensive here in the hospital which may be new diagnosis of hypertension * No evidence of thyroid disease, excessive alcohol, or prior coronary disease * Chest x-ray shows mild pulmonary interstitial prominence * No evidence of cardiac ischemia * Will start metoprolol 50 mg q.6 hours * Will initiate apixaban 5 mg twice daily * Will check cardiac echo to evaluate LV function and wall motion abnormalities as well as valvular disease * Will Hep-Lock IV fluids given chest x-ray findings and mildly elevated proBNP * DVT prophylaxis not indicated as the patient will be on apixaban * Patient reports he is a full code, his is his surrogate decision maker * I have utilized all available methods to review update and confirm the patient's current medication * Patient will be admitted under observation Time Spent With Patient Critical Care time: I spent a total of [] minutes of critical care time on this patient's care today; this time is exclusive of procedural time. Quality VTE Deep Vein Thrombosis/Pulmonary Embolism Present on Admission: No
[2021-06-04] MEDS: APIXABAN 5 MG TABLET PO ×2 (15:04→20:57)
[2021-06-04] MEDS: METOPROLOL ER 50 MG TABLET PO ×2 (15:04→20:58)
--- NOTE | 2021-06-04 17:24 | PM.CN.EICU ---
History of Present Illness Consult details Chief complaint: high heart rate :: This patient was seen via real time interactive two-way audiovisual telecommunication. 50 year old man with pmh of cervical radiculapthy, was gewtting steroid injeciton today, when on routine vitals it was noted he was very tahcycardic. HE was sent to ER, where he was ntoed to be in afib RVR. HE was trasnferred to the ICU for further management. HE was started on a cardizem gtt with lopressor PO with good control of his HR. On my evaluation his HR was down to the 80s-90s. HE deneid any complaints and was otherwise pleasant. Labs and imagine reviewed, bicabr mildly low, with mildly increase probnp, both of which I expect in a pt with afib rvr PFSH Medical History Cervical radiculopathy DJD of left AC (acromioclavicular) joint HNP (herniated nucleus pulposus), cervical Rotator cuff impingement syndrome of left shoulder Shoulder mass Family History Mother Diabetes mellitus Father Cancer Social History household members: spouse and children Smoking Status: Current every day smoker alcohol intake: current Current Medications Current Medications Medications: Home Medications No Known Home Medications 06/04/21 [History Confirmed 06/04/21] Visit Medications (administered) Generic Name Dose Route Start Last Admin Trade Name Tlq PRN Reason Stop Dose Admin Apixaban 5 mg 06/04/21 14:15 06/04/21 15:04 Apixaban 5 Mg Tablet PO 5 mg BID SERENITY Administration Diltiazem HCl 125 mg/ Dextrose 125 mls @ 5 mls/hr 06/04/21 11:32 06/04/21 13:45 IV 15 mg/hr TITRATE SERENITY 15 mls/hr Titration Protocol 5 MG/HR Metoprolol Succinate 50 mg 06/04/21 14:30 06/04/21 15:04 Metoprolol Er 50 Mg Tablet PO Not Given Q6H SERENITY Exam Vital Signs (past 8 hours): - 06/04/21 09:43 06/04/21 10:18 06/04/21 10:30 Temperature 98.1 F Pulse Rate 137 H 151 H 144 H Respiratory Rate 14 19 16 Blood Pressure 138/109 H 136/98 H Pulse Oximetry 99 99 99 06/04/21 10:36 06/04/21 10:47 06/04/21 11:00 Temperature Pulse Rate 144 H 128 H 102 H Respiratory Rate 15 13 Blood Pressure 136/98 H 134/80 130/86 Pulse Oximetry 98 98 06/04/21 11:30 06/04/21 11:54 06/04/21 12:00 Temperature Pulse Rate 116 H 131 H 140 H Respiratory Rate 15 13 18 Blood Pressure 118/83 136/81 Pulse Oximetry 100 99 98 06/04/21 12:01 06/04/21 12:15 06/04/21 12:30 Temperature Pulse Rate 142 H 148 H 134 H Respiratory Rate 20 19 16 Blood Pressure 147/99 H 136/103 H 122/89 Pulse Oximetry 98 98 98 06/04/21 13:00 06/04/21 13:23 06/04/21 14:01 Temperature 98.6 F Pulse Rate 124 H 146 H 142 H Respiratory Rate 16 12 20 Blood Pressure 134/99 H 141/97 H 139/107 H Pulse Oximetry 99 100 99 06/04/21 15:01 Temperature Pulse Rate 90 Respiratory Rate 15 Blood Pressure 124/79 Pulse Oximetry 100 Oxygen Delivery Method Room Air Oxygen Flow Rate 0 Narrative Exam Narrative: surrogate for exam is primary team Objective Labs Result Diagrams: 06/04/21 09:55 06/04/21 09:55 Labs: Laboratory Results - last 24 hr 06/04/21 06/04/21 06/04/21 09:55 09:55 09:55 WBC 6.9 RBC 5.05 Hgb 16.1 Hct 46.9 MCV 92.8 MCH 31.8 MCHC 34.3 RDW 13.1 Plt Count 211 Neut % (Auto) 64.7 Lymph % (Auto) 25.2 [place] % (Auto) 8.2 Eos % (Auto) 1.4 L Baso % (Auto) 0.5 Neut # (Auto) 4400 Lymph # (Auto) 1700 [place] # (Auto) 600 Eos # (Auto) 100 Baso # (Auto) 0 PT INR APTT Sodium 139 Potassium 4.3 Chloride 109 H Carbon Dioxide 21 L BUN 17 Creatinine 0.72 Estimated GFR > 60.0 BUN/Creatinine Ratio 23.6 H Glucose 124 H Calcium 9.3 Magnesium 1.9 Total Creatine Kinase 165 CK-MB (CK-2) 2.28 CK-MB (CK-2) Rel Index 1.4 L Troponin I < 0.012 NT-Pro-B Natriuret Pep 993 H TSH 1.91 Nasal Screen MRSA (PCR) SARS-CoV-2 (PCR) 06/04/21 06/04/21 06/04/21 09:55 10:30 13:45 WBC RBC Hgb Hct MCV MCH MCHC RDW Plt Count Neut % (Auto) Lymph % (Auto) [place] % (Auto) Eos % (Auto) Baso % (Auto) Neut # (Auto) Lymph # (Auto) [place] # (Auto) Eos # (Auto) Baso # (Auto) PT 12.1 INR 1.1 APTT 32 Sodium Potassium Chloride Carbon Dioxide BUN Creatinine Estimated GFR BUN/Creatinine Ratio Glucose Calcium Magnesium Total Creatine Kinase CK-MB (CK-2) CK-MB (CK-2) Rel Index Troponin I NT-Pro-B Natriuret Pep TSH Nasal Screen MRSA (PCR) Negative for mrsa SARS-CoV-2 (PCR) Negative Assessment & Plan Assessment & Plan narrative: atrial fibrillation with RVR - now imrpoved cervical radioculapthy with chronic pain Plan pain control as needed rate control - cont cardizem and lopressor wean to po as toelrated cards consult cardiac diet trend bmp/cbc monitor UO will need AC dvt ppx - on eliquis cct 35 min Time Spent With Patient Critical Care time: I spent a total of [] minutes of critical care time on this patient's care today; this time is exclusive of procedural time.
--- NOTE | 2021-06-04 21:55 | PM.ICURNDS ---
- Date Patient Seen: 06/04/21 Time Patient Seen: 21:50 :: This patient was seen via real time interactive two-way audiovisual telecommunication. Note: Patient is the unit for atrial fibrillation and a diltiazem infusion. HR is currently in 70s on diltiazem 5 mg/hr and Eliquis has been started. No interventions from eICU @ this time; continue current mgmt as per bedside team.
[2021-06-05] VITALS (17 sets, daily range): BP systolic 102–138; BP diastolic 63–96; PULSE 72–122; RESP 12–22; TEMP 36.6–36.8; O2SAT 95–99
[2021-06-05] MEDS: METOPROLOL ER 50 MG TABLET PO ×2 (02:18→08:05)
[2021-06-05 04:42] LABS: Add Manual Diff / Slide Review NO; Basophils Absolute Auto 100 /uL (0-100); Basophils Percent Auto 0.6 % (0-2); Eosinophils Absolute Auto 200 /uL (0-450); Eosinophils Percent Auto 2.1 % (2-4); Hematocrit 43.7 % (41-53); Lymphocytes Absolute Auto 2400 /uL (1100-4500); Lymphocytes Percent Auto 25.2 % (25-40); Mean Corpuscular HGB Conc 34.4 % (30-36); Mean Corpuscular Hemoglobin 31.8 PG (26-34); Mean Corpuscular Volume 92.6 fL (80-100); Monocytes Absolute Auto 900 /uL (0-900); Monocytes Percent Auto 9.3 % (3-14); Neutrophils Absolute Auto 6000 /uL (1500-7000); Neutrophils Percent Auto 62.8 % (50-75); Platelet Count 186 X10^3/uL (150-400); Red Blood Cell Count 4.72 X10^6/uL (4.5-5.9); Red Cell Distribution Width 13.5 % (11.6-14.8); White Blood Cell Count 9.5 X10^3/uL (4.5-11.0)
[2021-06-05 04:49] LABS: Blood Urea Nitrogen 18 mg/dL (9-20); Calcium 9.3 mg/dL (8.4-10.2); Carbon Dioxide 24 mmol/L (22-32); Estimated Glomerular Filt Rate > 60.0 mL/min (>60); Glucose 116 mg/dL (70-100); HEMOLYSIS < 15 (0-50)
[2021-06-05 04:50] LABS: Cholesterol 197 mg/dL (140-199); HDL Cholesterol 39 mg/dL (40-60); LDL Cholesterol Calculated 146 mg/dL (<100); Triglycerides 61 mg/dL (35-150)
[2021-06-05 04:59] LABS: Chloride 107 mmol/L (98-107); Potassium 4.1 mmol/L (3.4-5.1); Sodium 137 mmol/L (137-145)
--- NOTE | 2021-06-05 06:40 | PC.NURSE ---
Shift Note-Patient is A/O x4, remains in A-fib CVR throughout the night, diltiazem gtt titrated off at 0100, PO metoprolol XL 50mg Q6h administered. HR does get tachy to 120 briefly while ambulating, denies chest pain, palpitations, shortness of breath, or dizziness, he says his right fingers and right foot do occasionally feel numb when his HR is up.
[2021-06-05] MEDS: APIXABAN 5 MG TABLET PO (08:05)
[2021-06-05] MEDS: SODIUM CHLORIDE 0.9% FLUSH 10 ML IV (08:07)
[2021-06-05] MEDS: METOPROLOL ER 25 MG TABLET PO (09:09)
--- NOTE | 2021-06-05 09:48 | P.TELICUPN_ITS ---
Subjective Subjective :: This patient was seen via real time interactive two-way audiovisual telecommunication. patient doin well today, no complaints and off all drips. HRR between 90s and 130s, HD stbale and pending a TTE. Current Medications Current Medications Medications: Home Medications No Known Home Medications 06/04/21 [History Confirmed 06/04/21] Visit Medications (administered) Generic Name Dose Route Start Last Admin Trade Name Anurag PRN Reason Stop Dose Admin Apixaban 5 mg 06/04/21 14:15 06/05/21 08:05 Apixaban 5 Mg Tablet PO 5 mg BID SERENITY Administration Diltiazem HCl 125 mg/ Dextrose 125 mls @ 5 mls/hr 06/04/21 11:32 06/05/21 01:00 IV 0 mg/hr TITRATE SERENITY 0 mls/hr Titration Protocol 5 MG/HR Metoprolol Succinate 50 mg 06/04/21 14:30 06/05/21 08:05 Metoprolol Er 50 Mg Tablet PO 50 mg Q6H SERENITY Administration Sodium Chloride 10 ml 06/04/21 21:00 06/05/21 08:07 Sodium Chloride 0.9% Flush IV 10 ml BID SERENITY Administration Objective Labs Result Diagrams: 06/05/21 04:18 06/05/21 04:18 Labs: Laboratory Results - last 24 hr 06/04/21 06/04/21 06/04/21 09:55 09:55 09:55 WBC 6.9 RBC 5.05 Hgb 16.1 Hct 46.9 MCV 92.8 MCH 31.8 MCHC 34.3 RDW 13.1 Plt Count 211 Neut % (Auto) 64.7 Lymph % (Auto) 25.2 [place] % (Auto) 8.2 Eos % (Auto) 1.4 L Baso % (Auto) 0.5 Neut # (Auto) 4400 Lymph # (Auto) 1700 [place] # (Auto) 600 Eos # (Auto) 100 Baso # (Auto) 0 PT INR APTT Sodium 139 Potassium 4.3 Chloride 109 H Carbon Dioxide 21 L BUN 17 Creatinine 0.72 Estimated GFR > 60.0 BUN/Creatinine Ratio 23.6 H Glucose 124 H Calcium 9.3 Magnesium 1.9 Total Creatine Kinase 165 CK-MB (CK-2) 2.28 CK-MB (CK-2) Rel Index 1.4 L Troponin I < 0.012 NT-Pro-B Natriuret Pep 993 H Triglycerides Cholesterol LDL Cholesterol, Calc HDL Cholesterol TSH 1.91 Nasal Screen MRSA (PCR) SARS-CoV-2 (PCR) 06/04/21 06/04/21 06/04/21 09:55 10:30 13:45 WBC RBC Hgb Hct MCV MCH MCHC RDW Plt Count Neut % (Auto) Lymph % (Auto) [place] % (Auto) Eos % (Auto) Baso % (Auto) Neut # (Auto) Lymph # (Auto) [place] # (Auto) Eos # (Auto) Baso # (Auto) PT 12.1 INR 1.1 APTT 32 Sodium Potassium Chloride Carbon Dioxide BUN Creatinine Estimated GFR BUN/Creatinine Ratio Glucose Calcium Magnesium Total Creatine Kinase CK-MB (CK-2) CK-MB (CK-2) Rel Index Troponin I NT-Pro-B Natriuret Pep Triglycerides Cholesterol LDL Cholesterol, Calc HDL Cholesterol TSH Nasal Screen MRSA (PCR) Negative for mrsa SARS-CoV-2 (PCR) Negative 06/05/21 06/05/21 06/05/21 04:18 04:18 04:18 WBC 9.5 RBC 4.72 Hgb 15.0 Hct 43.7 MCV 92.6 MCH 31.8 MCHC 34.4 RDW 13.5 Plt Count 186 Neut % (Auto) 62.8 Lymph % (Auto) 25.2 [place] % (Auto) 9.3 Eos % (Auto) 2.1 Baso % (Auto) 0.6 Neut # (Auto) 6000 Lymph # (Auto) 2400 [place] # (Auto) 900 Eos # (Auto) 200 Baso # (Auto) 100 PT INR APTT Sodium 137 Potassium 4.1 Chloride 107 Carbon Dioxide 24 BUN 18 Creatinine 0.72 Estimated GFR > 60.0 BUN/Creatinine Ratio 25.0 H Glucose 116 H Calcium 9.3 Magnesium Total Creatine Kinase CK-MB (CK-2) CK-MB (CK-2) Rel Index Troponin I NT-Pro-B Natriuret Pep Triglycerides 61 Cholesterol 197 LDL Cholesterol, Calc 146 H HDL Cholesterol 39 L TSH Nasal Screen MRSA (PCR) SARS-CoV-2 (PCR) Exam Vital Signs (past 8 hours): - 06/05/21 02:00 06/05/21 02:18 06/05/21 03:00 Temperature Pulse Rate 77 77 80 Respiratory Rate 12 14 Blood Pressure 108/68 108/68 102/72 Pulse Oximetry 98 96 06/05/21 04:00 06/05/21 05:00 06/05/21 06:00 Temperature Pulse Rate 89 82 86 Respiratory Rate 14 13 14 Blood Pressure 110/63 117/89 Pulse Oximetry 95 96 99 06/05/21 07:00 06/05/21 07:30 06/05/21 08:00 Temperature Pulse Rate 93 H 84 94 H Respiratory Rate 13 14 13 Blood Pressure 138/86 123/76 Pulse Oximetry 97 98 97 06/05/21 09:00 Temperature 97.8 F Pulse Rate 108 H Respiratory Rate 17 Blood Pressure 128/96 H Pulse Oximetry Oxygen Delivery Method Room Air Oxygen Flow Rate 0 Narrative Exam Narrative: surrogate for exam is primary team Quality TeleICU VTE Deep Vein Thrombosis/Pulmonary Embolism Present on Admission: No Assessment & Plan Assessment & Plan narrative: Assessment & Plan narrative: atrial fibrillation with RVR - now imrpoved cervical radioculapthy with chronic pain Plan pain control as needed rate control with lopressor cards consult f/u TTE cardiac diet trend bmp/cbc monitor UO will need AC dvt ppx - on eliquis cct 35 min Time Spent With Patient Critical Care time: I spent a total of [] minutes of critical care time on this patient's care today; this time is exclusive of procedural time.
[2021-06-05] MEDS: dilTIAZem 30 MG TABLET PO ×2 (10:39→11:56)
--- NOTE | 2021-06-05 13:00 | PC.NURSE ---
Called to Dr. Chua. Reported pt's HR remains variable 90s-130 Afib. Reported last BP. Reviewed medications. Awaiting orders.
[2021-06-05] MEDS: METOPROLOL TARTRATE 5 MG/5 ML INJ IV (13:18)
--- NOTE | 2021-06-05 15:28 | CM.DANOTE ---
DCP Assessment: Patient is a 50 yr old male who was admitted for AFIB with RVR. CM met with the patient at the bedside and explained role patient was alert and oriented x4 during meeting. Patient [place] lives [place] with his [place]. Patient states he is completely independent with all ADLs and drives at baseline. CM spoke with Dr. Chua during AM rounds who stated patient will have an echo today and if this is clear will be able to DC home tonight. Pending ECHO results patient plan is to DC home with and will need priority boarding [place] the ferry home. no other DC planning needs Identified at this time. Cm department will follow to assist with any new DC planning needs that may arise. Alison Galicia RN Case Manger Discharge Planning/Care Management Discharge Assessment Start: 06/05/21 15:27 Freq: Status: Active Protocol: Document 06/05/21 15:27 HS (Rec: 06/05/21 15:28 HS [id number]) Discharge Planning Assessment Assigned Legal Recruiter Alison Galicia RNcriminal researcher DPOA/Assigned Designee Name Ana Rodgers ([email or web address]) Contact Information [phone] Advance Directives? No History Provided By Patient,Family Member,Medical Record Has Patient been admitted in last 30 No days? Prior Living Arrangements House Household Members spouse,children Type of transporation used prior to Drives own vehicle admit Independent with ADL's Yes Is patient alert and oriented? Yes Barriers to Discharge No Discharge Plan Home Referrals Initiated None needed Whiteboard Updated in Patient Room with Yes name and ext. # of Legal Recruiter Review Status In Process Next Review Type Continued Stay Review
--- NOTE | 2021-06-05 16:37 | P.DS_ITS ---
History of Present Illness History of Present Illness Date Patient Seen: 06/05/21 Time Patient Seen: 16:37 Chief complaint: high heart rate Narrative: The patient is a 50-year-old male previously healthy who was seen Dr. Aguilar for a steroid injection into his left cervical area. He was noted to be in rapid atrial fibrillation and brought into the emergency department for evaluation. The patient denies any history of palpitations, he has no history of shortness of breath, no history of chest pain, and no history of coronary disease. He denies orthopnea, PND, edema, or history of heart failure. Patient does report an episode of awareness of breathing a few nights ago but no other symptoms. Patient was evaulated in the Emergency Department and found to be in rapid atrial fibrillation with a heart rate of 140's-150's. He was started on a diltiazem drip and remained in rapid atrial fibrillation. Patient is admitted to the hospital for definitive treatment. Discharge Providers Provider Date of admission: 06/04/21 12:11 Discharge Date: 06/05/21 Primary care physician: Shannon Ernst MD Consults: 06/04/21 14:13 Consult to Tele-governor assembler Routine Comment: Consulting Provider: Ric Tele-intensivists Reason for consultation: Manager Of Radiology services Discharge provider: Catia Chua MD Summary Hospital Course Discharge Diagnosis: Atrial fibrillation with rapid ventricular response rate Hyperlipidemia Cervical radiculopathy Hospital Course: Patient was admitted to the hospital for atrial fibrillation with a rapid ventricular response rate. He was initially treated with IV diltiazem. He was transition to metoprolol XL 50 Q 6. The Cardizem was weaned off. The patient continued to be significantly tachycardic with heart rates of greater than 105. Cardizem 30 mg q.6 was added to his regimen. Patient did require an additional dose of Lopressor. He was started on apixaban for anticoagulation. His heart rate improved, and he was deemed appropriate for discharge home. The patient did have a cardiac echo. The results are as follows: Afib with rapid ventricular response. HR is 105-128 bpm. Normal LV size and wall thickness; EF is 40-45%. Severe LA enlargement; mild-mod erate RA enlargement. No significant valvular abnormalities. Patient was deemed appropriate for discharge and arrangements were made for him to discharge home. Status at Discharge Cognitive/behavioral status at discharge: oriented Functional status at discharge: independent ambulation Overall status at discharge: patient is progressing back to baseline Exam Vital Signs (past 8 hours): - 06/05/21 09:00 06/05/21 10:00 06/05/21 10:39 Temperature 97.8 F Pulse Rate 108 H 106 H 122 H Respiratory Rate 17 18 Blood Pressure 128/96 H 126/88 06/05/21 11:00 06/05/21 12:00 06/05/21 12:56 Temperature 98.2 F Pulse Rate 107 H 105 H Respiratory Rate 13 22 Blood Pressure 131/92 H 136/90 Oxygen Delivery Method Room Air Oxygen Flow Rate 0 Narrative Exam Narrative: Pleasant male resting comfortably Resp Other: Lungs clear to auscultation Cardio Other: Cardiac exam: Irregularly irregular, normal S1-S2 GI Other: Abdomen: Soft nontender nondistended Extrem Other: Extremity no edema Objective Labs Result Diagrams: 06/05/21 04:18 06/05/21 04:18 Labs: Laboratory Results - last 24 hr 06/05/21 06/05/21 06/05/21 04:18 04:18 04:18 WBC 9.5 RBC 4.72 Hgb 15.0 Hct 43.7 MCV 92.6 MCH 31.8 MCHC 34.4 RDW 13.5 Plt Count 186 Neut % (Auto) 62.8 Lymph % (Auto) 25.2 [place] % (Auto) 9.3 Eos % (Auto) 2.1 Baso % (Auto) 0.6 Neut # (Auto) 6000 Lymph # (Auto) 2400 [place] # (Auto) 900 Eos # (Auto) 200 Baso # (Auto) 100 Sodium 137 Potassium 4.1 Chloride 107 Carbon Dioxide 24 BUN 18 Creatinine 0.72 Estimated GFR > 60.0 BUN/Creatinine Ratio 25.0 H Glucose 116 H Calcium 9.3 Triglycerides 61 Cholesterol 197 LDL Cholesterol, Calc 146 H HDL Cholesterol 39 L PFSH Medical History Cervical radiculopathy DJD of left AC (acromioclavicular) joint HNP (herniated nucleus pulposus), cervical Rotator cuff impingement syndrome of left shoulder Shoulder mass Family History Mother Diabetes mellitus Father Cancer Social History household members: spouse and children Smoking Status: Current every day smoker alcohol intake: current Discharge Assessment & Plan Assessment and Plan Assessment: 1. Atrial fibrillation with rapid ventricular response rate 2. Hyperlipidemia 3. Cervical radiculopathy Plan of Treatment: medications as prescribed Outpatient Cardiology appointment Discharge Plan Discharge Plan Patient Disposition: Home Discharge orders & Medications Prescriptions: New atorvastatin [Lipitor] 20 mg Tablet 20 mg PO BEDTIME Qty: 30 0RF Eliquis 5 mg Tablet 5 mg PO BID Qty: 60 0RF diltiazem HCl [Cardizem CD] 240 mg capsule,extended release 24hr 240 mg PO DAILY Qty: 30 0RF metoprolol succinate 200 mg tablet extended release 24 hr 200 mg PO DAILY Qty: 30 0RF No Action No Known Home Medications 0RF Follow up/Referrals: Shannon Ernst MD [Primary Care Provider] - Richard Pablo MD [Physician] - (New onset atrial fibrillation Echo EF 40-45%, severe right atrial enlargement Consideration of D/C cardioversion) Discharge Health Status Multidrug resistant organism: No MDRO Diet/Activity/Treatments Diet: Low-sodium and Low-cholesterol Activity: as tolerated Discharge Data Primary Care Provider: Shannon Ernst Quality VTE Deep Vein Thrombosis/Pulmonary Embolism Present on Admission: No
--- NOTE | 2021-06-05 17:11 | PC.NURSE ---
Addendum entered by Yomi Rooney R.N. 06/05/21 19:20: 1815- Reviewed dc packet, educational materials with pt and spouse. Reviewed med regimen, side effects, dosing, time, next dose due. Reviewed monitoring parameters. Discussed when to seek emergency medical treatment. Pt and verbalize understanding. Pt is agreeable to making own f/u appts first thing on tuesday morning. Pt declined w/c transport at time of discharge and ambulated independently to [facility] with all belongings. Pt in no distress at time of discharge (1829). Pt was escorted to exit by PATSY Argueta. Original Note: HR controlled after 5 mg IVP metoprolol. Afib 70s-80s. 80s with activity. Pt denies symptoms. BP WNL. Reviewed with Dr. Chua. Orders rec'd for discharge home. Pt and updated on plan of care. Gave pt's hard copy rx to bring to pharmacy of her choice to fill. She will do this and see if able to obtain medications tonight prior to ferr boarding time. She is unsure if the pharmacy on [address] is opened tomorrow.
[2021-06-05] MEDS: METOPROLOL ER 25 MG TABLET 75 MG PO (17:58)
[2021-06-05] MEDS: dilTIAZem 30 MG TABLET 60 MG PO (17:58)
== END 2021-06-05 18:30 | disposition home or self-care (01) ==
LOC: ED 12:09 → ICU 14:46 → AC 06-07 12:15
PROVIDERS: Admitting Provider Internal Medicine; Emergency Provider Emergency Medicine; PCP Specialist; Referring Provider Emergency Medicine; Visit Provider Internal Medicine
DX: I48.91 Unspecified atrial fibrillation (principal); M54.12 Radiculopathy, cervical region; F17.210 Nicotine dependence, cigarettes, uncomplicated; E78.5 Hyperlipidemia, unspecified; Z20.822 Contact with and (suspected) exposure to COVID-19
CPT/HCPCS: 36415; 71045; 80048; 80061; 82550; 82553; 83735; 83880; 84443; 84484; 85025; 85610; 85730; 87635; 87797; 93005; 93010; 93306; 96361; 96365; 96366; 96375; 99284; C9803; G0378

== ENCOUNTER → 2021-09-09 09:52 | Outpatient (CLI) | payer OTHER, SELFPAY ==
[2021-06-04 13:19] VITALS: BMI 30.4
--- NOTE | 2021-09-09 15:22 | PM.TREADMILL ---
Cardiac Stress Test Report Referral & Results Indication: A FIB Rest ECG: A FIB Procedure Note: NM TREADMILL STRESS TEST Impression: STANDARD JUSTINO PROTOCOL MAX EFFORT ETT; SOREN 12% SLIGHTLY REDUCED EXER CAPACITY; METS 10.1, EXER TIME 9:01; MAX HR REACHED 180 (107% OF MAX HR ACHIEVED); HAD APPROPRIATE HEMODYNAMIC RESPONSE; BASLINE ECG A FIB; PATIENT HAD 4/10 CHEST PRESSURE AT 5 MINUTES AND 15 SECONDS INTO EXERCISE AND 1-1.[address] DEPRESSION NOTED IN INFERIOR LEADS; OCCASIONAL PVCS; CHEST PRESSURE RESOLVED IMMEDIATELY INTO RECOVERY; HAD MODERATE SOB; MIBI SCAN PENDING; CERTIFIED ORTHOTIST PRACTICE MANAGER TO REVIEW; FLOR MATAMOROS Please note: Actual ECG tracings can be found in the PACS system.
--- NOTE | 2021-09-09 18:55 | DI.NM.S_ITS ---
DATE OF SERVICE: 09/09/2021 PROCEDURE: Exercise perfusion study. INDICATION: Atrial fibrillation. RADIOPHARMACEUTICAL: 25.0 millicurie technetium-99m Myoview IV was injected at stress and 12.0 millicurie technetium-99m Myoview IV was injected at rest. CARDIAC STRESS: The patient underwent exercise perfusion study under the supervision of an attending staff. The patient walked on Vignesh protocol for 9 minutes and 01 seconds, achieved maximum heart rate of 180 beats per minute, which was 107 percent of the target heart rate. Baseline heart rate was 97. Baseline blood pressure 122/84 mmHg and peak blood pressure 160/92 mmHg. Baseline rhythm was AFib with some nonspecific ST-T changes. During AFib and peak exercise, there was up to [address] depression in inferior leads, which got resolved in recovery. At around 5 minutes and 15 seconds into the exercise, patient had chest pressure, which was on a scale of 1-10, 4 in intensity. It got resolved in recovery. Had some shortness of breath, as well. RAW DATA: There is increased subdiaphragmatic activity. Diaphragmatic shadow was seen. Patient's weight is 230 pounds. Resting LV ejection fraction 66 and stress LV ejection fraction 67 percent without any obvious wall motion abnormalities. Resting end-diastolic volume 149 mL. TID ratio 0.91, which is within normal limits. Lung/heart ratio 0.27, which is within normal limits. MYOCARDIAL PERFUSION SCAN: Stress supine and resting supine images revealed small size, mildly decreased perfusion of basal inferior wall. In resting supine, there was minimally decreased perfusion of distal anterior wall, as well. During stress prone images, there was normal myocardial perfusion. Baseline inferior wall and distal anterior wall defect got resolved. No obvious ischemia or infarction pattern. CONCLUSION: I will call this study a normal myocardial perfusion study with evidence of tissue attenuation artifact, which got resolved during stress prone images. Stress prone images revealed normal myocardial perfusion. The stress left ventricular ejection fraction is 67 percent and resting left ventricular ejection fraction is 66. The patient achieved 10.1 metabolic equivalents of workload. Normal blood pressure response. There was enhanced chronotropic response with underlying atrial fibrillation. Maximum rate was 180 beats per minute. The patient had chest discomfort around 5 minutes and 15 seconds into the exercise, which was on a scale of 1-10, 4 in intensity. There was some nonspecific ST depression in inferior leads, as patient has some baseline nonspecific ST changes. No ventricular arrhythmias. As far as perfusion scan is concerned, this is a low-risk myocardial perfusion scan. Correlate clinically. Vladimir Rodgers - Sagar/eron doc#: [id number]/job#: [id number] dd: 09/09/2021 16:57:00 dt: 09/09/2021 18:47:00 DICTATING MD/COPIES TO: Richard Pablo MD COPIES MNE: RADHA;
== END ==
PROVIDERS: PCP Family Medicine; Referring Provider Internal Medicine Cardiovascular Disease; Visit Provider Internal Medicine Cardiovascular Disease
DX: I48.91 Unspecified atrial fibrillation (principal); R07.89 Other chest pain
CPT/HCPCS: 78452; 93017; A9502